=== PATIENT | male | born 1955 | race Caucasian/White ===

== ENCOUNTER 2016-12-02 00:20 | Emergency (ER) | payer OTHER ==
--- NOTE | ~2016-12-02 | CT71 ---
[facility] A Service [facility] RADIOLOGY TEXT RESULTS PATIENT: GUTIERREZ JENKINS LOCATION: [facility] : 53 UNIT #: [id number] AGE: [address]: Júnior Harris MD SEX: M ORDER DR: [id number] [address] [address] [id number] MR#: [id number] Acc #: [id number] NAME: GUTIERREZ JENKINS : 1955 SEX: M STUDY DATE/TIME: 12/02/2016 0:34 UNIT: [facility] ROOM: STUDY DESCRIPTION: CT Head Wo Contrast Attending Physician: Júnior Harris M.D. Ordering Physician: Júnior Harris M.D. Primary Care Physician: Primary Care Physician No MEDICAL IMAGING REPORT This report is preliminary unless electronic signature is present EXAM CT head without contrast INDICATION Headache and right temporal region pain after an injury tonight. PROCEDURE Unenhanced CT of the head. This CT examination was performed with one or more of the following radiation dose reduction techniques: automatic exposure control, adjustment of mA and/or kV according to patient size, and iterative reconstruction. COMPARISON None. FINDINGS No acute hemorrhage, abnormal mass effect, extraaxial fluid collection or hydrocephalus. No depressed calvarial fracture. Paranasal sinuses and mastoid air cells are clear. IMPRESSION No acute intracranial findings. Dictated by... Mark Underwood M.D. THIS IS AN ELECTRONICALLY VERIFIED REPORT Mark Underwood M.D. at 12/02/2016 10:07 PM EED/beverly TD: 12/02/2016 07:11 [facility] A Service [facility] RADIOLOGY TEXT RESULTS PATIENT: GUTIERREZ JENKINS LOCATION: [facility] : 53 UNIT #: [id number] AGE: [address]: Júnior Harris MD SEX: M ORDER DR: JOB #: [id number] MEDICAL IMAGING REPORT Page 1 of 1 COPY
[~2016-12-02 00:20] MED LIST: FLEXERIL10 MG PO; LIPITOR20 MG PO; LISINOPRIL20 MG PO; LOPID600 MG PO; LOPRESSOR PO; METFORMIN HCL500 M1 PO; MOBIC PO; OMEPRAZOLE20 M2 PO
== END 2016-12-02 01:25 | disposition home or self-care (01) ==
LOC: CED 00:20
DX: S01.81XA Laceration without foreign body of other part of head, initial encounter (principal); E11.9 Type 2 diabetes mellitus without complications; W33.01XA Accidental discharge of shotgun, initial encounter; Y92.22 Religious institution as the place of occurrence of the external cause
CPT/HCPCS: 70450; 99283